=== PATIENT | male | born 1995 ===

== ENCOUNTER 2017-03-27 08:49 | Observation (INO) | payer OTHER ==
[2017-03-27 08:59] VITALS: PULSE 68; O2SAT 100
[2017-03-27] MEDS ORDERED: Sodium Chloride 0.9% 1,000 ML IV ONE (09:18)
--- NOTE | 2017-03-27 09:21 | C.PDOC ---
History Of Present Illness 21 y/o male presents to the ED with complains of left lower abdominal pain x2 weeks worsening over the past 3 days. Pain was mild, intermittent and over the last 3 days became sharp, non-radiating. Denies nausea, vomiting, diarrhea, constipation, bloody stools, groin pain, dysuria, fever or any other complaints. Denies injury. Time Seen by Provider: 03/27/17 09:11 Chief Complaint (Nursing): Abdominal Pain History Per: Patient History/Exam Limitations: no limitations Onset/Duration Of Symptoms: Days Current Symptoms Are (Timing): Worse Severity: Moderate Location Of Pain/Discomfort: LLQ Radiation Of Pain To:: None Quality Of Discomfort: Sharp Associated Symptoms: denies: Fever, Nausea, Vomiting, Diarrhea, Constipation, Urinary Symptoms Exacerbating Factors: None Alleviating Factors: None Recent travel outside of the [place]: No Past Medical History Reviewed: Historical Data, Nursing Documentation, Vital Signs Vital Signs: Last Vital Signs Temp 98.3 F 03/27/17 12:06 Pulse 68 03/27/17 12:06 Resp 17 03/27/17 12:06 BP 111/67 03/27/17 12:06 Pulse Ox 100 03/27/17 12:43 - Medical History PMH: No Chronic Diseases Family History: States: Unknown Family Hx - Social History Hx Alcohol Use: No Hx Substance Use: No Review Of Systems Except As Marked, All Systems Reviewed And Found Negative. Constitutional: Negative for: Fever Gastrointestinal: Positive for: Abdominal Pain. Negative for: Nausea, Vomiting , Diarrhea, Constipation, Hematochezia Genitourinary: Negative for: Dysuria Physical Exam - Physical Exam Appears: Non-toxic, No Acute Distress Skin: Warm, Dry, No Rash Head: Atraumatic, Normacephalic Eye(s): bilateral: Normal Inspection Nose: Normal Neck: Normal ROM, Supple Chest: Symmetrical Cardiovascular: Rhythm Regular, No Murmur Respiratory: Normal Breath Sounds, No Rales, No Rhonchi, No Wheezing Gastrointestinal/Abdominal: Soft, Tenderness (LLQ), No Guarding, No Rebound Back: No CVA Tenderness Male Genital: Normal Inspection, No Testicular Tenderness, No Inguinal Tenderness, Other (normal appearance) Extremity: Normal ROM Extremity: Bilateral: Atraumatic, Normal Color And Temperature, Normal ROM Neurological/Psych: Oriented x3, Normal Speech Gait: Steady ED Course And Treatment - Laboratory Results Result Diagrams: 03/27/17 09:26 03/27/17 09:26 Lab Interpretation: No Acute Changes O2 Sat by Pulse Oximetry: 100 (room air) Pulse Ox Interpretation: Normal - CT Scan/US CT abdomen Other Rad Studies (CT/US): Read By Radiologist, Radiology Report Reviewed CT/US Interpretation: Accession No. : [id number]. Patient Name / ID : BOY Mathews / [id number]. Exam Date : 03/27/2017 11:38:51 ( Approved ). Study Comment : Sex / Age : M / 21Y. Creator : Anusha Herrera MD. Dictator : Anusha Herrera MD. Television Production Technician : [employer] : Anusha Herrera MD. Approver2 : Report Date : 03/27/2017 12:27:47. My Comment : . PROCEDURE: CT Abdomen and Pelvis with contrast. HISTORY: LLQ abd pain. COMPARISON: None available. TECHNIQUE: Contrast dose: 100 mL Visipaque. Radiation dose: Total exam DLP = 473.15 mGy-cm. This CT exam was performed using one or more of the following dose reduction techniques: Automated exposure control, adjustment of the mA and/or kV according to patient size, and/ or use of iterative reconstruction technique. FINDINGS: Motion artifact limits evaluation. LOWER THORAX: No visible consolidation, pleural effusion, or pneumothorax. LIVER: Hypoattenuation of the liver compatible with hepatic steatosis. Hepatomegaly. GALLBLADDER AND BILE DUCTS: Unremarkable. PANCREAS: Unremarkable. SPLEEN: Unremarkable. ADRENALS: Unremarkable. KIDNEYS AND URETERS: The kidneys enhance symmetrically. No hydronephrosis or obstructing calculus identified. VASCULATURE: No aortic aneurysm. BOWEL: Stomach is nondistended. Lack of oral contrast as well as motion artifact limit evaluation for bowel pathology. Bowel loops appear within normal limits of caliber without evidence of obstruction. Diverticulosis without definite CT evidence of acute diverticulitis. Moderate constipation. APPENDIX: Limited visualization of the presumed appendix appears within normal limits of caliber. No secondary signs of acute appendicitis. PERITONEUM: Significant free fluid. No definite free air. LYMPH NODES: No bulky adenopathy appreciated. BLADDER : Unremarkable. REPRODUCTIVE: Unremarkable. BONES: No acute osseous abnormality is detected. OTHER FINDINGS: None. IMPRESSION: Lack of oral contrast as well as motion artifact limit evaluation for bowel pathology. Diverticulosis without definite CT evidence of acute diverticulitis. Moderate constipation. Hepatic steatosis. Hepatomegaly. Medical Decision Making Medical Decision Making: Plan: * CT abdomen * labs * UA * Toradol * IV fluids ED OBSERVATION Discharge: Yes Date of observation admission: 03/27/17 Time of observation admission: 09:20 - Observation admission statement Patient is being placed in observation because:: LLQ abdominal pain - Goals of Observation Goals of observation are:: IV hydration, analgesics, labs and CT imaging - Progress Note Progress Note: 03/27/17 09:20 Patient with LLQ abdominal pain for 3 weeks, worse 2 days ago. Patient is tender in LLQ. Blood work drawn and sent to laboratory. Will treat with IV NS and Toradol, await labs and CT scan to rule out diverticulitis. 03/27/17 10:13 Labs reviewed and uremarkable, no leukocytosis or urine abnormality. CT pending 03/27/17 12:33 CT reviewed by me showing diverticulosis without evidence of diverticulitis and moderate constipation. Patient reevaluated and reports feeling better. Explain lab and CT findings Advise patient to increase fluid and fiber intake. Vital signs are stable. Patient stable for discharge Disposition Counseled Patient/Family Regarding: Diagnosis, Need For Followup, Rx Given - Disposition Disposition: HOME/ ROUTINE Disposition Time: 12:39 Condition: STABLE - POA Present On Arrival: None - Clinical Impression Clinical Impression: Constipation, Diverticulosis - PA / FACILITY OPERATIONS MANAGER / Resident Statement MD/DO has reviewed & agrees with the documentation as recorded. - Scribe Statement The provider has reviewed the documentation as recorded by the Nas Mondragon All medical record entries made by the Nas were at my direction and personally dictated by me. I have reviewed the chart and agree that the record accurately reflects my personal performance of the history, physical exam, medical decision making, and the department course for this patient. I have also personally directed, reviewed, and agree with the discharge instructions and disposition.
[2017-03-27] MEDS ORDERED: Sodium Chloride 0.9% 1,000 ML ONE (09:29)
[2017-03-27 09:33] LABS: BASO % 0.5 % (0.0-2.0); EOS # 0.3 K/uL (0.0-0.7); EOS % 4.2 % (0.0-4.0); HEMATOCRIT 44.2 % (35.0-51.0); LYMPH % 30.4 % (20.0-40.0); MEAN CELL VOLUME 85.1 fL (80.0-94.0); MEAN CORPUSCULAR HEMOGLOBIN 28.6 pg (27.0-31.0); MEAN CORPUSCULAR HGB CONC 33.6 g/dL (33.0-37.0); MEAN PLATELET VOLUME 7.5 fL (7.2-11.7); MONO # 0.5 K/uL (0.0-0.8); NRBC % 0.1 % (0.0-2.0); RED CELL DISTRIBUTION WIDTH 13.9 % (11.5-14.5); WHITE BLOOD COUNT 6.5 K/uL (4.8-10.8)
[2017-03-27 09:34] LABS: URINE BILIRUBIN NEGATIVE (NEGATIVE); URINE BLOOD NEGATIVE (NEGATIVE); URINE COLOR Straw (YELLOW); URINE GLUCOSE (UA) NORMAL (Normal); URINE KETONE NEGATIVE (NEGATIVE); URINE LEUKOCYTE ESTERASE NEG Leu/uL (Negative); URINE PROTEIN NEGATIVE (NEGATIVE); URINE UROBILINOGEN NORMAL mg/dL (0.2-1.0); WBC URINE < 1 /hpf (0-5)
[2017-03-27 09:40] LABS: CHLORIDE 99 mmol/L (98-107); SODIUM 139 mmol/L (132-148)
[2017-03-27 09:42] LABS: BILIRUBIN,TOTAL 1.1 mg/dL (0.2-1.3); CARBON DIOXIDE 29 mmol/L (22-30); GFR AFRICAN-AMERICAN > 60
[2017-03-27 09:43] LABS: ALB/GLOB RATIO 1.7 (1.0-2.1); ALKALINE PHOSPHATASE 67 U/L (38-126); ALT/SGPT 21 U/L (21-72); AST/SGOT 28 U/L (17-59); BLOOD UREA NITROGEN 17 mg/dL (9-20); CALCIUM 8.9 mg/dl (8.6-10.4); GLUCOSE,RANDOM 93 mg/dL (75-110); TOTAL PROTEIN 7.4 g/dL (6.3-8.3)
[2017-03-27] MEDS ORDERED: Iodixanol 320 MG/ML 100 ML BOTTLE IV ONE ×2 (10:12→11:29)
[2017-03-27 12:07] VITALS: BP 111/67; RESP 17; TEMP 98.3
--- NOTE | 2017-03-27 12:29 | CT ---
PROCEDURE: CT Abdomen and Pelvis with contrast HISTORY: LLQ abd pain COMPARISON: None available TECHNIQUE: Contrast dose: 100 mL Visipaque Radiation dose: Total exam DLP = 473.15 mGy-cm. This CT exam was performed using one or more of the following dose reduction techniques: Automated exposure control, adjustment of the mA and/or kV according to patient size, and/or use of iterative reconstruction technique. FINDINGS: Motion artifact limits evaluation. LOWER THORAX: No visible consolidation, pleural effusion, or pneumothorax. LIVER: Hypoattenuation of the liver compatible with hepatic steatosis. Hepatomegaly. GALLBLADDER AND BILE DUCTS: Unremarkable. PANCREAS: Unremarkable. SPLEEN: Unremarkable. ADRENALS: Unremarkable. KIDNEYS AND URETERS: The kidneys enhance symmetrically. No hydronephrosis or obstructing calculus identified. VASCULATURE: No aortic aneurysm. BOWEL: Stomach is nondistended. Lack of oral contrast as well as motion artifact limit evaluation for bowel pathology. Bowel loops appear within normal limits of caliber without evidence of obstruction. Diverticulosis without definite CT evidence of acute diverticulitis. Moderate constipation. APPENDIX: Limited visualization of the presumed appendix appears within normal limits of caliber. No secondary signs of acute appendicitis. PERITONEUM: Significant free fluid. No definite free air. LYMPH NODES: No bulky adenopathy appreciated. BLADDER: Unremarkable. REPRODUCTIVE: Unremarkable. BONES: No acute osseous abnormality is detected. OTHER FINDINGS: None. IMPRESSION: Lack of oral contrast as well as motion artifact limit evaluation for bowel pathology. Diverticulosis without definite CT evidence of acute diverticulitis. Moderate constipation. Hepatic steatosis. Hepatomegaly.
== END 2017-03-27 12:39 | disposition home or self-care (01) ==
LOC: C.ER 08:49 → C.9OBSV 09:19 → INTOOBSV 09:19
PROVIDERS: ADMIT Emergency Medicine; ATTEND Emergency Medicine
DX: K57.90 Diverticulosis of intestine, part unspecified, without perforation or abscess without bleeding (principal); K59.00 Constipation, unspecified
CPT/HCPCS: 74177; 80053; 81001; 83690; 85025; 87086; 96361; 96374; 99284; G0378; J1885; J7040; Q9967

== ENCOUNTER 2018-08-27 19:39 | Emergency (ER) | payer SELFPAY ==
[2018-08-27 20:06] VITALS: BP 121/75; PULSE 74; RESP 20; TEMP 98.4; O2SAT 100
--- NOTE | 2018-08-27 20:48 | C.PDOC ---
History Of Present Illness 22 y/o healthy male presents with pain and swelling to right knee that started today, no hx injury or trauma to knee, no fever. denies any denies penile discharge no dysuria, denies being in [place] or grassy areas. Time Seen by Provider: 08/27/18 20:31 Chief Complaint (Nursing): Lower Extremity Problem/Injury History Per: Patient History/Exam Limitations: no limitations Onset/Duration Of Symptoms: Days (1) Current Symptoms Are (Timing): Better Severity: Moderate Past Medical History Reviewed: Historical Data, Nursing Documentation, Vital Signs Vital Signs: Last Vital Signs Temp 98.4 F 08/27/18 20:02 Pulse 74 08/27/18 20:02 Resp 20 08/27/18 20:02 BP 121/75 08/27/18 20:02 Pulse Ox 100 08/27/18 20:02 - Medical History PMH: No Chronic Diseases Family History: States: Unknown Family Hx - Social History Hx Alcohol Use: Yes Hx Substance Use: No Review Of Systems Constitutional: Negative for: Fever, Chills Cardiovascular: Negative for: Chest Pain Respiratory: Negative for: Cough Gastrointestinal: Negative for: Nausea, Vomiting, Abdominal Pain Genitourinary: Negative for: Dysuria, Penile Discharge Musculoskeletal: Positive for: Leg Pain (knee pain, right ) Skin: Negative for: Rash Neurological: Negative for: Weakness, Numbness Physical Exam - Physical Exam Appears: Non-toxic, No Acute Distress Skin: Warm, Dry, Other (swelling, with erythema and warmth to right patella, dec rom to knee 2/2 pain, no calf tenderness, no pedal edema. ) Head: Atraumatic, Normacephalic Extremity: No Normal ROM (dec rom righ tknee due to pain), No Pedal Edema, Swelling (right knee, ? effusion) Pulses: Right Dorsalis Pedis: Normal Neurological/Psych: Oriented x3, Normal Speech, Normal Cognition ED Course And Treatment - Laboratory Results Result Diagrams: 08/27/18 21:07 08/27/18 21:07 O2 Sat by Pulse Oximetry: 100 Medical Decision Making Medical Decision Makin22 y/o male with pain and swelling to right knee- labs, lyme, gc/chlamydia, re- eval. 2240 pt with dec pain s/p motrin; discussed with Dr Garcia; will tx with one gram rocephin in ed and d/c with doxycycline; This will cover both gc, chlamydia and also lyme disease,. pt instructed to f/u in ed for wound check in 3-4 days and to f/u labs. pt understands plan. Disposition Counseled Patient/Family Regarding: Studies Performed, Diagnosis, Need For Followup, Rx Given - Disposition Referrals: [facility] [Outside] Disposition: HOME/ ROUTINE Disposition Time: 23:45 Condition: IMPROVED Additional Instructions: [place] antibiticos hasta que se complete segn lo prescrito. [place] ibuprofeno para el dolor. Compresas fras hasta la rodilla 3-4 veces al da. Regrese a la casandra de emergencias en 3-4 alcantar para marc revisin de la herida y para hacer un seguimiento de los resultados de las pruebas realizadas en la casandra de emergencias hoy. No recomiendo tener relaciones sexuales hasta que las pruebas resulten. Si el enrojecimiento de la rodilla se disemina, tiene fiebre, no puede doblarla, regrese a la casandra de emergencias de inmediato. Take antiboitcs until completed as prescribed. Take ibuprofen for pain. Cold compresses to knee 3-4 times per day. Return to ER in 3-4 days for a wound check and to follow up test results done in ER today. Recommend no sexual intercourse until tests resulted. If redness to knee spreads, you develop a fever, you are unable to bend knee, return to ER right away. Prescriptions: Doxycycline Hyclate 100 mg PO BID #14 capsule Ibuprofen [Motrin] 600 mg PO TID #30 tab Instructions: Cellulitis (Skin Infection), Adult (DC) Forms: Gen Discharge Inst Danish, [employer] (Danish) Print Language: UZBEK - Clinical Impression Clinical Impression: Cellulitis of knee, right
[2018-08-27 21:14] LABS: BASO % 0.4 % (0.0-2.0); EOS # 0.2 K/uL (0.0-0.7); EOS % 1.9 % (0.0-4.0); HEMOGLOBIN 14.6 g/dL (12.0-18.0); LYMPH # 1.9 K/uL (1.0-4.3); LYMPH % 20.6 % (20.0-40.0); MEAN CELL VOLUME 83.9 fL (80.0-94.0); MEAN CORPUSCULAR HEMOGLOBIN 28.2 pg (27.0-31.0); MEAN CORPUSCULAR HGB CONC 33.7 g/dL (33.0-37.0); MONO # 0.7 K/uL (0.0-0.8); MONO % 7.5 % (0.0-10.0); NEUT # 6.4 K/uL (1.8-7.0); NEUT % 69.6 % (50.0-75.0); NRBC % 0.1 % (0.0-2.0); RBC 5.16 Mil/uL (4.40-5.90); RED CELL DISTRIBUTION WIDTH 13.4 % (11.5-14.5)
[2018-08-27 21:19] LABS: WHITE BLOOD COUNT 9.2 K/uL (4.8-10.8)
[2018-08-27 21:29] LABS: ALB/GLOB RATIO 1.9 (1.0-2.1); ALBUMIN 5.2 g/dL (3.5-5.0); ALT/SGPT 46 U/L (21-72); AST/SGOT 36 U/L (17-59); BLOOD UREA NITROGEN 23 mg/dL (9-20); CALCIUM 9.9 mg/dl (8.6-10.4); GFR NON-AFRICAN AMERICAN > 60
[2018-08-27] MEDS ORDERED: cefTRIAXone IV 1 gm in Dextros 1 GM in Dextrose 5% In Water 50 ML IVPB STA (22:13)
[2018-08-27] MEDS ORDERED: cefTRIAXone IV 1 gm in Dextros 1 GM in Sodium Chloride 0.9% 100 ML IVPB STA (22:24)
--- NOTE | 2018-08-28 08:48 | RAD ---
Date of service: 08/27/2018 PROCEDURE: Right Knee Radiographs. HISTORY: pain,. swelling and rendess to knee COMPARISON: None. FINDINGS: BONES: Normal. No fracture. JOINTS: Normal. No osteoarthritis. JOINT EFFUSION: None. OTHER FINDINGS: None. IMPRESSION: Normal radiographs of the right knee.
== END 2018-08-27 23:38 | disposition home or self-care (01) ==
LOC: C.ER 19:39
DX: L03.115 Cellulitis of right lower limb (principal)
CPT/HCPCS: 73562; 80053; 85025; 86618; 87491; 87591; 96365; 99284; J0696

== ENCOUNTER 2018-08-30 20:00 | Emergency (ER) | payer SELFPAY ==
[2018-08-30 20:09] VITALS: BMI 25.7
[2018-08-30 20:13] VITALS: BP 116/73; PULSE 93; RESP 18; TEMP 98.6; O2SAT 98
--- NOTE | 2018-08-30 21:07 | C.PDOC ---
History Of Present Illness 22 year old male presents to the emergency department for a wound check on the right knee and lab results Patient was seen here on 08/27/18 and was diagnosed with cellulitis. Complains of right knee pain but denies any fever, weakness, or numbness. Time Seen by Provider: 08/30/18 20:37 Chief Complaint (Nursing): Lower Extremity Problem/Injury History Per: Patient History/Exam Limitations: no limitations Onset/Duration Of Symptoms: Days Current Symptoms Are (Timing): Still Present Past Medical History Reviewed: Historical Data, Nursing Documentation, Vital Signs Vital Signs: Last Vital Signs Temp 98.6 F 08/30/18 20:09 Pulse 93 H 08/30/18 20:09 Resp 18 08/30/18 20:09 BP 116/73 08/30/18 20:09 Pulse Ox 98 08/30/18 20:09 Family History: States: No Known Family Hx - Social History Hx Alcohol Use: Yes Hx Substance Use: No - Immunization History Hx Tetanus Toxoid Vaccination: No Hx Influenza Vaccination: No Hx Pneumococcal Vaccination: No Review Of Systems Except As Marked, All Systems Reviewed And Found Negative. Constitutional: Negative for: Fever, Chills Gastrointestinal: Negative for: Nausea, Vomiting, Diarrhea Skin: Positive for: Other (Wound on R knee) Neurological: Negative for: Weakness, Numbness Physical Exam - Physical Exam Appears: Non-toxic, No Acute Distress Skin: Warm, Dry Head: Atraumatic, Normacephalic Extremity: Tenderness (and swelling to anterior aspect of R knee; no effusion; no warmth; no erythema), Capillary Refill (less than 2 seconds), No Deformity Neurological/Psych: Oriented x3, Normal Speech, Normal Motor, Normal Sensation Gait: Steady ED Course And Treatment O2 Sat by Pulse Oximetry: 98 (RA) Pulse Ox Interpretation: Normal Progress Note: Gram stain still pending. Patient was advised to follow up in medical clinic in 2 days for results and re-evaluation. Advised to continue curent management. Disposition Counseled Patient/Family Regarding: Diagnosis, Need For Followup - Disposition Referrals: [facility] at [facility] [Outside] Disposition: HOME/ ROUTINE Disposition Time: 21:02 Condition: STABLE Additional Instructions: Apply BRYAN to area / [place] Continue current medications Sigue en clinica en 2 langley Return to ER if worse Instructions: Knee Pain (DC) Forms: Apprity (Danish) - Clinical Impression Clinical Impression: Knee pain, right, Cellulitis of knee, right - PA / WOOL CARDER / Resident Statement MD/DO has reviewed & agrees with the documentation as recorded. - Scribe Statement The provider has reviewed the documentation as recorded by the Scribe Letha Gallagher All medical record entries made by the Nickibolamide were at my direction and personally dictated by me. I have reviewed the chart and agree that the record accurately reflects my personal performance of the history, physical exam, medical decision making, and the department course for this patient. I have also personally directed, reviewed, and agree with the discharge instructions and disposition.
== END 2018-08-30 21:24 | disposition home or self-care (01) ==
LOC: C.ER 20:00
DX: L03.115 Cellulitis of right lower limb (principal); M25.561 Pain in right knee

== ENCOUNTER 2018-09-20 20:00 | Emergency (ER) | payer OTHER ==
[2018-09-20 20:00] VITALS: BMI 25.7
[2018-09-20 20:09] VITALS: BP 116/73; PULSE 57; RESP 18; TEMP 98.5; O2SAT 99
--- NOTE | 2018-09-20 20:30 | C.PDOC ---
History Of Present Illness 22 year old male presents to ED complaining of pain and swelling to right big toe for the past 2 weeks. Patient reports pain worsens when he walks, and took Tylenol and Motrin with minimal relief. Denies fever, chills, weakness, numbness. Time Seen by Provider: 09/20/18 20:11 Chief Complaint (Nursing): Abnormal Skin Integrity History Per: Patient History/Exam Limitations: no limitations Onset/Duration Of Symptoms: Days Past Medical History Reviewed: Historical Data, Nursing Documentation, Vital Signs Vital Signs: Last Vital Signs Temp 98.5 F 09/20/18 20:05 Pulse 57 L 09/20/18 20:05 Resp 18 09/20/18 20:05 BP 116/73 09/20/18 20:05 Pulse Ox 99 09/20/18 20:05 Surgical History: No Surg Hx Family History: States: No Known Family Hx - Social History Hx Alcohol Use: Yes Hx Substance Use: No - Immunization History Hx Tetanus Toxoid Vaccination: No Hx Influenza Vaccination: No Hx Pneumococcal Vaccination: No Review Of Systems Except As Marked, All Systems Reviewed And Found Negative. Constitutional: Negative for: Fever, Chills Musculoskeletal: Positive for: Foot Pain (Pain and swelling to right big toe for past 2 weeks.) Neurological: Negative for: Weakness, Numbness Physical Exam - Physical Exam Appears: Non-toxic, No Acute Distress Skin: Warm, Dry Head: Atraumatic, Normacephalic Eye(s): bilateral: PERRL, EOMI Oral Mucosa: Moist Neck: Supple Extremity: Tenderness (minimal to right great toe), Capillary Refill (<2), Other (Minimal erythema to the lateral aspect of right great toe. Laterally ingrown nail to right great toe. No drainage or fluctuance.) Pulses: Left Dorsalis Pedis: Normal, Right Dorsalis Pedis: Normal Neurological/Psych: Oriented x3 Gait: Steady ED Course And Treatment O2 Sat by Pulse Oximetry: 99 (RA) Pulse Ox Interpretation: Normal Progress Note: Advised to follow up with podiatry clinic. Reassessment Condition: Improved Disposition Counseled Patient/Family Regarding: Diagnosis, Need For Followup, Rx Given - Disposition Referrals: Podiatry Clinic [Outside] Disposition: HOME/ ROUTINE Disposition Time: 20:26 Condition: STABLE Additional Instructions: Soak foot in warm soapy water Wear support shoes Take medications as directed Return to ER if worse Prescriptions: Cephalexin [cephalexin] 500 mg PO Q6 #20 cap Ibuprofen [Motrin] 600 mg PO Q6H #20 tab Instructions: Ingrown Toenail (DC) Forms: [employer] (British) Print Language: ROMANIAN - Clinical Impression Clinical Impression: Ingrown toenail of right foot - PA / GEOTHERMAL TECHNICIAN / Resident Statement MD/DO has reviewed & agrees with the documentation as recorded. - Scribe Statement The provider has reviewed the documentation as recorded by the Scribe Asad Cantu All medical record entries made by the Nas were at my direction and personally dictated by me. I have reviewed the chart and agree that the record accurately reflects my personal performance of the history, physical exam, medical decision making, and the department course for this patient. I have also personally directed, reviewed, and agree with the discharge instructions and disposition.
== END 2018-09-20 20:47 | disposition home or self-care (01) ==
LOC: SUPCPDRO 20:00 → C.ER 20:00
DX: L60.0 Ingrowing nail (principal)